=== PATIENT | female | born 1935 | race Caucasian/White ===

== ENCOUNTER 2016-07-29 11:01 | Emergency (ER) | payer MEDICAID ==
[~2016-07-29] VITALS: Wt 68.0 kg
[2016-07-29 12:47] LABS: ADD UMIC YES; URINE BILIRUBIN (Dip) NEGATIVE (NEGATIVE); URINE BLOOD (Dip) 2+ (NEGATIVE); URINE COLOR LT. YELLOW (YELLOW); URINE GLUCOSE (Dip) NEGATIVE (NEGATIVE); URINE KETONES (Dip) NEGATIVE (NEGATIVE); URINE LEUKOCYTE ESTERASE (Dip) TRACE (NEGATIVE); URINE NITRITE (Dip) NEGATIVE (NEGATIVE); URINE TOTAL PROTEIN (Dip) NEGATIVE (NEGATIVE); URINE UROBILINOGEN (Dip) 0.2 E.U./dL (0.1-1.0)
[2016-07-29 12:51] LABS: BASOPHIL # 0.1 10^3/ul (0.0-0.1); BASOPHILS % 0.7 % (0.0-2.0); EOSINOPHILS # 0.3 10^3/ul (0.0-0.5); EOSINOPHILS % 3.4 % (0.0-7.0); HEMATOCRIT 40.8 % (37.0-47.0); HEMOGLOBIN 13.5 g/dl (12.0-16.0); LYMPHOCYTES # 1.6 10^3/ul (0.8-2.9); LYMPHOCYTES % 17.7 % (15.0-51.0); MEAN CORPUSCULAR HEMOGLOBIN 29.8 pg (29.0-33.0); MEAN CORPUSCULAR HGB CONC 33.1 g/dl (32.0-37.0); MEAN CORPUSCULAR VOLUME 89.9 fl (82.0-101.0); MEAN PLATELET VOLUME 8.6 fl (7.4-10.4); MONOCYTE # 0.5 10^3/ul (0.3-0.9); MONOCYTES % 5.1 % (0.0-11.0); NEUTROPHIL # 6.5 10^3/ul (1.6-7.5); NEUTROPHILS % 73.1 % (39.0-77.0); PLATELET COUNT 331 10^3/UL (140-440); RED BLOOD COUNT 4.54 10^6/ul (4.20-5.40); RED CELL DISTRIBUTION WIDTH 13.2 % (11.5-14.5); UNCORRECTED WBC 8.9 10^3/ul (4.8-10.8); WHITE BLOOD COUNT 8.9 10^3/ul (4.8-10.8)
[2016-07-29 13:02] LABS: CONDITION 1
[2016-07-29 13:05] LABS: POTASSIUM 4.1 mmol/L (3.5-5.1)
[2016-07-29 13:07] LABS: BILIRUBIN,INDIRECT 0.6 mg/dl (0-1.1); BILIRUBIN,TOTAL 0.6 mg/dl (0.2-1.3); CREATININE 0.73 mg/dl (0.44-1.00)
[2016-07-29 13:08] LABS: CALCIUM 9.1 mg/dl (8.4-10.2)
[2016-07-29 13:14] LABS: SQUAMOUS EPITHELIAL CELL,UR FEW
[2016-07-29 13:46] LABS: ALBUMIN 4.4 g/dl (3.3-4.9)
[2016-07-29 13:48] LABS: ALBUMIN/GLOBULIN RATIO 1.07
[2016-07-29 13:51] LABS: TOTAL PROTEIN 8.5 g/dl (6.1-8.1)
[2016-07-29] MEDS ORDERED: WARF5TAB72 PO (14:01)
[2016-07-29] MEDS ORDERED: ATOR20TA38 PO (14:01)
[2016-07-29] MEDS ORDERED: LISI10TA2 PO (14:01)
--- NOTE | 2016-07-29 14:24 | RADRPT ---
PROCEDURE: CT Abdomen and Pelvis without contrast. CLINICAL INDICATION: Abdominal pain TECHNIQUE: CT of the abdomen and pelvis was performed on a multi-detector scanner without IV contr ast. Coronal and sagittal images were reformatted from the axial data set. One or more of the foll owing dose reduction techniques were used: automated exposure control, adjustment of the mA and/or kV according to patient size, use of iterative reconstruction technique. CTDI = 9.66 mGy. DLP = 566 .49 mGy-cm. COMPARISON: Abdominal pain, nausea and vomiting FINDINGS: CT abdomen: The lung bases are clear. The heart size is normal, without pericardial effusion. Liver, gallbladd er, biliary tree, pancreas, spleen, adrenal glands and left kidney are unremarkable. There is minim al dilatation of the right renal collecting system, along with mild right periureteral and perinephr ic edema - considerations include recently passed right ureteral stone and right pyelonephritis. Sm all hiatal hernia is noted. The stomach is otherwise grossly unremarkable. The aorta is of normal caliber. Aortic vascular calcifications are present. There is no retroperit alva lymphadenopathy. The linette hepatis region is clear. CT pelvis: No bowel obstruction, free intraperitoneal air or abscess is identified. Colonic diverticulosis is seen without diverticulitis. Mild retained fecal material may indicate constipation. The appendix is well visualized and normal. There is no colitis. Urinary bladder, uterus and right adnexa are u nremarkable. Left adnexa is asymmetrically prominent, measuring approximately 4.8 x 3.1 cm (3-133). No pelvic free fluid or lymphadenopathy is identified. The surrounding osseous structures are remarkable for degenerative spondylosis of the spine. No ost eolytic or osteoblastic lesion is detected. IMPRESSION: 1. There is minimal dilatation of the right renal collecting system, as well as mild right perineph cynthia and periureteral edema - considerations include recently passed right ureteral calculus and righ t pyelonephritis. 2. Left adnexa is asymmetrically prominent, of uncertain significance - left ovarian mass is not ex cluded. Consider ultrasound for further evaluation. 3. Small hiatal hernia is noted. 4. Aortoiliac atherosclerotic calcifications are present. 5. Colonic diverticulosis is seen without diverticulitis. 6. Mild retained fecal material may indicate constipation. RPTAT: TT .Gian Wasserman MD, MD Date Time Electronically viewed and signed by .Gian Wasserman MD, MD on 07/29/2016 14:24 .R/
[2016-07-29] MEDS ORDERED: NA PHOSPHATE/BIPHOS 133 ML ENEMA PR ONE (14:30)
[2016-07-29] MEDS ORDERED: LACT20SO2 PO (14:31)
[2016-07-29] MEDS ORDERED: DOCU-144 PO (14:31)
--- NOTE | 2016-07-29 14:34 | ERD ---
ER Documentation Chief Complaint Date/Time DATE: 07/29/16 TIME: 14:32 Chief Complaint CONSTIPATION FOR THE PAST 5 DAYS. NO RECTAL BLEEDING HPI This is a an 81-year-old female presents to the emergency room with her family member for evaluation of constipation. History is obtained from family member. The patient has not been able to defecate for the past 5 days. The patient has been on MiraLAX without relief of her symptoms. The patient came to the ER for evaluation. She states she is having crampy pain in the lower abdomen. ROS All systems reviewed and are negative except as per history of present illness. Medications Home Meds Active Scripts Lactulose* (Lactulose*) 20 Gm/30 Ml Solution, 20 GM PO BID for 3 Days, ML Prov:BONIFACIO ROA DO 07/29/16 Docusate Sodium* (Colace*) 100 Mg Capsule, 100 MG PO TID, #30 CAP Prov:BONIFACIO ROA DO 07/29/16 Reported Medications Warfarin Sodium* (Coumadin*) 5 Mg Tablet, 5 MG PO DAILY, TAB 07/29/16 Lisinopril* (Lisinopril*) 10 Mg Tablet, 10 MG PO DAILY, #30 TAB 07/29/16 Atorvastatin Calcium* (Atorvastatin Calcium*) 20 Mg Tablet, 20 MG PO QHS, #30 TAB 07/29/16 Allergies Allergies: Coded Allergies: No Known Allergy (Unverified , 07/29/16) PMhx/Soc Medical and Surgical Hx: pt denies Medical Hx, pt denies Surgical Hx Hx Alcohol Use: No Hx Substance Use: No Hx Tobacco Use: No Smoking Status: Never smoker Physical Exam Vitals Vital Signs Date Time Temp Pulse Resp B/P Pulse Ox O2 Delivery O2 Flow Rate FiO2 07/29/16 11:09 98.8 80 20 165/77 98 Physical Exam INITIAL VITAL SIGNS: Reviewed by me GENERAL: The patient is well developed and appropriate for usual state of health in no apparent distress HEENT: Pupils equal, round, and reactive to light. EOMI. There is no scleral icterus. NECK: C-spine is soft and supple, there is no meningismus. There is no cervical lymphadenopathy. LUNGS: Clear to auscultation bilaterally. There are no rales, wheezes or rhonchi. HEART: Regular rate and rhythm, no murmurs, clicks, rubs or gallops. ABDOMEN: Soft, non-tender, non-distended. There are bowel sounds in all four quadrants. No rebound or guarding. EXTREMITIES: There is no peripheral cyanosis or edema. No focal swelling or erythema. NEUROLOGICAL: The patient moves all four extremities with 5/5 strength. Cranial nerves II - XII are intact. Normal gait. Alert and oriented SKIN: There is no apparent rash or petechiae. HEME/LYMPHATIC: There is no evidence of excessive bruising or lymphedema. PSYCHIATRIC: The patient does not appear anxious or depressed. Result Diagram: 07/29/16 1215 07/29/16 1215 Results 24 hrs Laboratory Tests Test 07/29/16 12:15 Alanine Aminotransferase (ALT/SGPT) 21IU/L Albumin 4.4g/dl Albumin/Globulin Ratio 1.07 Alkaline Phosphatase 91IU/L Anion Gap 16 Aspartate Amino Transf (AST/SGOT) 20IU/L Basophils # 0.110^3/ul Basophils % 0.7% Blood Urea Nitrogen 13mg/dl Calcium Level 9.1mg/dl Carbon Dioxide Level 29mmol/L Chloride Level 100mmol/L Creatinine 0.73mg/dl Direct Bilirubin 0.00mg/dl Eosinophils # 0.310^3/ul Eosinophils % 3.4% Globulin 4.10g/dl Glucose Level 89mg/dl Hematocrit 40.8% Hemoglobin 13.5g/dl Indirect Bilirubin 0.6mg/dl Lipase 75U/L Lymphocytes # 1.610^3/ul Lymphocytes % 17.7% Mean Corpuscular Hemoglobin 29.8pg Mean Corpuscular Hemoglobin Concent 33.1g/dl Mean Corpuscular Volume 89.9fl Mean Platelet Volume 8.6fl Monocytes # 0.510^3/ul Monocytes % 5.1% Neutrophils # 6.510^3/ul Neutrophils % 73.1% Nucleated Red Blood Cells # 0.010^3/ul Nucleated Red Blood Cells % 0.0/100WBC Platelet Count 51285^3/UL Potassium Level 4.1mmol/L Red Blood Count 4.5410^6/ul Red Cell Distribution Width 13.2% Sodium Level 141mmol/L Total Bilirubin 0.6mg/dl Total Protein 8.5g/dl Urine Bilirubin NEGATIVE Urine Clarity CLEAR Urine Color LT. YELLOW Urine Glucose NEGATIVE% Urine Hemoglobin 2+ Urine Ketones NEGATIVE Urine Leukocyte Esterase TRACE Urine Microscopic RBC 5-10/HPF Urine Microscopic WBC 0-2/HPF Urine Nitrite NEGATIVE Urine Specific Elizabeth <=1.005 Urine Squamous Epithelial Cells FEW Urine Total Protein NEGATIVE Urine Urobilinogen 0.2 E.U./dL Urine pH 7.0 White Blood Count 8.910^3/ul Current Medications Medications (Trade) Dose Ordered Sig/Cristian Route PRN Reason Start Time Stop Time Status Last Admin Dose Admin Sodium Biphosphate/ Sodium Phosphate (Fleet Enema) 133 ml ONCE ONCE [place] 07/29/16 14:30 07/29/16 14:31 DC Procedures/MDM CT abdomen pelvis without: 1. There is minimal dilatation of the right renal collecting system, as well as mild right perinephric and periureteral edema - considerations include recently passed right ureteral calculus and right pyelonephritis. 2. Left adnexa is asymmetrically prominent, of uncertain significance - left ovarian mass is not excluded. Consider ultrasound for further evaluation. 3. Small hiatal hernia is noted. 4. Aortoiliac atherosclerotic calcifications are present. 5. Colonic diverticulosis is seen without diverticulitis. 6. Mild retained fecal material may indicate constipation. This 81-year-old female presents to the emergency room for evaluation of constipation. This patient has not been able to defecate for the past 5 days. She is passing gas. The patient states that she is having crampy pain and localizes it to the right portion of her abdomen. CT of the abdomen pelvis does show perinephric and periureteral edema. The patient also has constipation on her CAT scan. This patient could have passed a stone and I explained this to her. She was given an enema here in the emergency room and will be discharged home with a prescription for lactulose. She is afebrile, not tachycardic, and has no complaints of burning with urination at this time. I do not feel the need to start antibiotics at this time. Departure Diagnosis: Primary Impression: Abdominal pain Additional Impression: Constipation Condition: Stable Patient Instructions: Constipation (Adult) Referrals: [facility] YOU HAVE RECEIVED A MEDICAL SCREENING EXAM AND THE RESULTS INDICATE THAT YOU DO NOT HAVE A CONDITION THAT REQUIRES URGENT TREATMENT IN THE EMERGENCY DEPARTMENT. FURTHER EVALUATION AND TREATMENT OF YOUR CONDITION CAN WAIT UNTIL YOU ARE SEEN IN YOUR DOCTORS OFFICE WITHIN THE NEXT 1-2 DAYS. IT IS YOUR RESPONSIBILITY TO MAKE AN APPOINTMENT FOR FOLOW-UP CARE. IF YOU HAVE A PRIMARY DOCTOR --you should call your primary doctor and schedule an appointment IF YOU DO NOT HAVE A PRIMARY DOCTOR YOU CAN CALL OUR PHYSICIAN REFERRAL HOTLINE AT IF YOU CAN NOT AFFORD TO SEE A PHYSICIAN YOU CAN CHOSE FROM THE FOLLOWING [facility] [address] [facility] [address] [facility] [address] [facility] [address] [facility] [address] [facility] [address] [facility] [facility]. [address] Additional Instructions: Llame al doctor MAANA y wolf trisha SARA PARA DENTRO DE 1-2 DAMON.Dgale a la secretaria que nosotros le instruimos hacer esta sara.Avise o llame si anaya condicin se empeora antes de la sara. Regresa aqui si peor o no mejor. BONIFACIO ROA DO Jul 29, 2016 14:34
[2016-07-29 15:33] VITALS: BP 155/67; PULSE 78; RESP 20
== END 2016-07-29 15:35 | disposition home or self-care (01) ==
LOC: E/R 11:01
DX: R10.30 Lower abdominal pain, unspecified (principal); R40.2252 Coma scale, best verbal response, oriented, at arrival to emergency department; R40.2362 Coma scale, best motor response, obeys commands, at arrival to emergency department; R40.2142 Coma scale, eyes open, spontaneous, at arrival to emergency department; Z79.01 Long term (current) use of anticoagulants
CPT/HCPCS: 36415; 74176; 80053; 81001; 81003; 83690; 85025; Z7502; Z7610